=== PATIENT | male | born 1980 | race Caucasian/White ===

== ENCOUNTER 2023-01-25 13:07 | Outpatient (CLI) | payer BC, SELFPAY ==
[2023-01-25 13:24] LABS: Appearance Urine Clear (Clear); Bilirubin Urine Negative (Negative); Blood Urine Negative (Negative); Color Urine Yellow (Yellow); Glucose Urine UA Negative (Negative); Ketones Urine Negative (Negative); Leukocyte Esterase Ur Negative LEU/UL (Negative); Nitrate Urine Negative (Negative); Protein Urine Negative (Negative); Urobilinogen Urine 0.2 mg/dL (<2.0); pH Urine 5.5 (5.0-9.0)
[2023-01-25 13:50] LABS: Add Urine Microscopic? NO
== END 2023-01-25 13:08 | disposition home or self-care (01) ==
LOC: ANHLAB 13:09
PROVIDERS: PCP Internal Medicine; Visit Provider Internal Medicine
DX: B37.9 Candidiasis, unspecified (principal)
CPT/HCPCS: 81003

== ENCOUNTER 2024-05-06 08:19 | Outpatient (CLI) | payer BC, SELFPAY ==
--- NOTE | ~2024-05-06 | XR_ITS ---
EXAMINATION: XR arthrogram shoulder LT DATE: 05/06/2024 09:32 INDICATION: Left shoulder pain TECHNIQUE: A time-out was performed to verify the patient's name, date of , and procedure to b e performed. The procedure including the risks, benefits, and alternatives was discussed with the pat iecarlin. Risks discussed included bleeding and infection. The patient understood the risks and agreed to proceed. The skin overlying the rotator cuff interval of the left glenohumeral joint was prepped an d draped in usual sterile fashion. Anesthetic was administered with 1% lidocaine subcutaneously. A 22 G needle was advanced under fluoroscopic guidance into the joint. Injection of 1 mL of Omnipaque 240 confirmed intra-articular position of the needle. Subsequently, injectate consisting of 12 mL of 2:1:1 mixture of sterile saline:Omnipaque 240:1% lidocaine mixed 200:1 with 529 mg/mL Multihance jac olinium contrast was instilled. Washout of contrast was seen confirming intra-articular administrati on. The needle was removed and the entry site was cleaned and dressed. There were no immediate compl ications. Fluoroscopy exposure time was 0.2 minutes. The total number of images was 168. Total DAP wa s 0.657 mGycm^2 FINDINGS: Real-time fluoroscopy demonstrates the needle an injected contrast in the right glenohumera l joint. IMPRESSION: 1. Successful left glenohumeral joint injection of dilute gadolinium contrast mixture for subsequent MRI arthrogram which will be dictated separately. Reviewed, dictated and finalized at location A. IMPRESSION: 1. Successful left glenohumeral joint injection of dilute gadolinium contrast m ixture for subsequent MRI arthrogram which will be dictated separately.
--- NOTE | ~2024-05-06 | MR_ITS ---
EXAMINATION: MR shoulder LT w con DATE: 05/06/2024 09:59 INDICATION: Left shoulder pain TECHNIQUE: Magnetic resonance imaging (MRI) of the left shoulder was performed following intra-artic ular gadolinium contrast injection and without intravenous contrast. Details of the glenohumeral join t injection have been dictated separately. Sequences included axial T2-weighted FS FSE, axial T1-sina ghted FS FSE, coronal oblique T1-weighted FS FSE, coronal oblique T2-weighted FSE, sagittal T2-weight ed FS FSE, sagittal T1-weighted FSE, and ABER (abduction external rotation) T1-weighted FS FSE. COMPARISON: None. FINDINGS: Coracoacromial arch: The acromion undersurface is curved in morphology (type II). The coracoacromial ligament is normal. M ild acromioclavicular osteoarthritis. Rotator cuff: Mild to moderate supraspinatus and mild infraspinatus tendinopathy without tear. The teres minor tend on is normal. The subscapularis is normal. Normal rotator cuff muscle bulk and signal. Biceps tendon, glenoid labrum and glenohumeral cartilage: Long head of the biceps tendon is normal. There are suture anchors at the anterior and anteroinferior aspect of the glenoid labrum likely for prior labral repair. No evident labral tissue along the 3:00 anterior to 7:00 posterior inferior position of the glenoid consistent with recurrent tear displacem ent versus secondary degeneration of the repaired labrum. There is deep chondral ulceration along the anterior and anteroinferior glenoid. Less severe partial thickness cartilage loss with smooth chondr al surface along the cephalad glenoid. There is partial thickness cartilage loss with some chondral s urface irregularity at the apex of the humeral head along the margins of a posterolateral Hill-Sachs fracture defect. Bones and other: Bone alignment is normal. There is a chronic Hill-Sachs fracture trough at the posterior superolatera l aspect of the humeral head. No acute fracture or pathologic marrow replacing process. That signal i ntensity within largely involuted chronic cystic change extending from medial to lateral across the c ephalad aspect of the intertubercular groove. Fluid signal within an additional cystic change along t he superior facet of the greater tuberosity. Partial tearing of the glenoid side of the anteroinferio r glenohumeral ligament without surrounding edema likely sequela of trauma with Bankhart lesion occur ring in conjunction with the labral tear. Small amount of noncontrast enhanced fluid in the subacromi al/subdeltoid bursa consistent with mild bursitis. IMPRESSION: 1. Recurrent tear versus degeneration of the previously repaired anterior to inferior glenoid labrum with chronic Hill-Sachs fracture trough at the posterior superolateral aspect of the humeral head sug gesting represent sequela of chronic and potentially recurrent glenohumeral dislocation. 2. Mild glenohumeral osteoarthritis with deep chondral ulceration at the anterior to inferior glenoid . 3. Partial tear at the glenoid side of the anteroinferior glenohumeral ligament likely chronic and oc curring in the setting of a Bankart lesion in conjunction with the labral tear. 4. Mild infraspinatus and mild to moderate supraspinatus tendinopathy without tear. 5. Mild subacromial/subdeltoid bursitis. Reviewed, dictated and finalized at location A. IMPRESSION: 1. Recurrent tear versus degeneration of the previously repaired anterior to in ferior glenoid labrum with chronic Hill-Sachs fracture trough at the posterior superolateral aspect of the humeral head suggesting represent sequela of chroni c and potentially recurrent glenohumeral dislocation. 2. Mild glenohumeral osteoarthritis with deep chondral ulceration at the anteri or to inferior glenoid. 3. Partial tear at the glenoid si
== END 2024-05-06 08:20 | disposition home or self-care (01) ==
LOC: ANHIMG 08:30
PROVIDERS: PCP Internal Medicine; Visit Provider Internal Medicine
DX: M25.512 Pain in left shoulder (principal); M19.012 Primary osteoarthritis, left shoulder; M75.112 Incomplete rotator cuff tear or rupture of left shoulder, not specified as traumatic; M67.814 Other specified disorders of tendon, left shoulder; M75.52 Bursitis of left shoulder
CPT/HCPCS: 23350; 73040; 73222; A9577; Q9966

== ENCOUNTER 2024-08-23 13:50 | Outpatient (CLI) | payer BC, SELFPAY ==
--- NOTE | ~2024-08-23 | MR_ITS ---
EXAMINATION: MR cervical spine wo con DATE: 08/23/2024 14:18 INDICATION: Neck pain. Weakness. TECHNIQUE: Magnetic resonance imaging (MRI) of the cervical spine was performed without intravenous c ontrast. COMPARISON: None FINDINGS: There is 6 degrees dextrocurvature of cervicothoracic spine. Vertebral body heights are nor mal. There is mildly decreased disc height at C4-C5, C5-C6, and C6-C7. The spinal cord signal intensi ty is normal. The following disc levels are specifically discussed: C2-C3: The disc does not extend beyond the endplate margin. There is no uncovertebral joint osteoarth ritis. There is mild bilateral facet joint osteoarthritis. There is no neural foraminal stenosis. The re is no central canal stenosis. C3-C4: There is a central protrusion. There is no uncovertebral joint osteoarthritis. There is no fac et joint osteoarthritis. There is no neural foraminal stenosis. There is mild central canal stenosis. C4-C5: The disc does not extend beyond the endplate margin. There is no uncovertebral joint osteoarth ritis. There is no facet joint osteoarthritis. There is no neural foraminal stenosis. There is no josé miguel tral canal stenosis. C5-C6: The disc is bulging. There is mild bilateral uncovertebral joint osteoarthritis. There is no f acet joint osteoarthritis. There is no neural foraminal stenosis. There is mild central canal stenosi s. C6-C7: The disc is bulging. There is no uncovertebral joint osteoarthritis. There is mild left facet joint osteoarthritis. There is no neural foraminal stenosis. There is mild central canal stenosis. C7-T1: The disc does not extend beyond the endplate margin. There is no uncovertebral joint osteoarth ritis. There is mild bilateral facet joint osteoarthritis. There is no neural foraminal stenosis. The re is no central canal stenosis. IMPRESSION: 1. Mild cervical spondylosis. Reviewed, dictated and finalized at location A. INJECTION SERVICER
--- NOTE | ~2024-08-23 | MR_ITS ---
EXAMINATION: MR lumbar spine wo con DATE: 08/23/2024 14:34 INDICATION: Low back pain. TECHNIQUE: Magnetic resonance imaging (MRI) of the lumbar spine was performed without intravenous con trast. Sequences included sagittal T2-weighted FSE, sagittal T2-weighted FS FSE, sagittal T1-weighted FSE, and axial T2-weighted FSE. COMPARISON: None FINDINGS: Alignment is normal. Vertebral body heights are normal. Intervertebral disc heights are nor mal. The distal spinal cord signal intensity is normal. The conus medullaris is at T12. The following disc levels are specifically discussed: L1-L2: There is a right foraminal extrusion. There is no facet joint osteoarthritis. There is mild ri ght neural foraminal stenosis. There is no central canal stenosis. L2-L3: The disc is mildly bulging. There is mild bilateral facet joint osteoarthritis. There is mild bilateral neural foraminal stenosis. There is no central canal stenosis. L3-L4: The disc is bulging and has an annular fissure. There is mild bilateral facet joint osteoarthr itis. There is mild bilateral neural foraminal stenosis. There is mild central canal stenosis. L4-L5: The disc is bulging and has an annular fissure. There is mild bilateral facet joint osteoarthr itis. There is mild bilateral neural foraminal stenosis. There is mild central canal stenosis. L5-S1: The disc is bulging and has an annular fissure. There is mild bilateral facet joint osteoarthr itis. There is mild left neural foraminal stenosis. There is mild central canal stenosis. IMPRESSION: 1. Mild lumbar spondylosis. Reviewed, dictated and finalized at location A. ITATIVE FIELD PROJECT MANAGER IMPRESSION: 1. Mild lumbar spondylosis.
== END 2024-08-23 13:51 | disposition home or self-care (01) ==
LOC: GOSHIMG 13:51
PROVIDERS: PCP Internal Medicine; Visit Provider Internal Medicine
DX: M43.06 Spondylolysis, lumbar region (principal); M43.02 Spondylolysis, cervical region
CPT/HCPCS: 72141; 72148

== ENCOUNTER 2024-09-11 13:53 | Outpatient (CLI) | payer BC, SELFPAY ==
--- NOTE | ~2024-09-11 | MR_ITS ---
EXAMINATION: MR brain/brain stem wo/w con DATE: 09/11/2024 14:50 INDICATION: Weakness. TECHNIQUE: Magnetic resonance imaging (MRI) of the brain and brainstem was performed without and with 18 mL MultiHance intravenous contrast. COMPARISON: None. FINDINGS: There is no intracranial hemorrhage, acute infarction, or abnormal intracranial mass lesion . The ventricles are normal in size. The paranasal sinuses are clear. The orbits are normal. The mast oid air cells are normal. IMPRESSION: 1. Normal brain. Reviewed, dictated and finalized at location A. [place] COOPER IMPRESSION: 1. Normal brain.
== END 2024-09-11 13:54 | disposition home or self-care (01) ==
LOC: MICIMG 13:53
PROVIDERS: PCP Internal Medicine; Visit Provider Internal Medicine
DX: R53.1 Weakness (principal)
CPT/HCPCS: 70553; A9577

== ENCOUNTER 2025-07-09 10:10 | Outpatient (CLI) | payer BC, SELFPAY ==
--- NOTE | ~2025-07-09 | MMUS_ITS ---
EXAMINATION: MM diagnostic maren RT w lakeisha, US breast RT limited INDICATION: 44-year old MALE; presents for imaging evaluation of small palpable nodule in the right breast. COMPARISON: Baseline TECHNIQUE: Digital breast tomosynthesis CC and MLO views of the RIGHT breast and MLO view of the left breast were obtained with computer-aided detection to assist in interpretation of the study. FINDINGS: The breasts are almost entirely fatty.There is minimal volume of fibroglandular tissue in RIGHT breast in the area of palpable lump compatible with gynecomastia. There are no suspicious masses, calcifications, architectural distortion or any other abnormality in BILATERAL breast. RIGHT BREAST ULTRASOUND FINDINGS: Targeted evaluation of the palpable lump in the right breast was completed. At 7:00, 2 cm from the nipple corresponding to the palpable lump there is an hypoechoic lesion within the subcutaneous fat that measure 1.2 x 0.9 x 0.7 cm. This finding is compatible with a fatty tumor such as lipoma. IMPRESSION: FINDINGS COMPATIBLE WITH LIPOMA CORRELATES TO THE AREA OF PALPABLE LUMP IN THE RIGHT BREAST . FURTHER EVALUATION OF PATIENT'S PALPABLE LUMP SHOULD BE BASED ON CLINICAL IMPRESSION. FOLLOW-UP CLINICALLY WARRANTED. RECOMMENDATION: Clinical management of patient's palpable lump. BI-RADS 2, BENIGN Reviewed, dictated and finalized at location B. IMPRESSION: FINDINGS COMPATIBLE WITH LIPOMA CORRELATES TO THE AREA OF PALPABLE LUMP IN THE RIGHT BREAST . FURTHER EVALUATION OF PATIENT'S PALPABLE LUMP SHOULD BE BASED ON CLINICAL IMPRESSION. FOLLOW-UP CLINICALLY WARRANTED. RECOMMENDATION: Clinical management of patient's palpable lump. BI-RADS 2, BENIGN
--- OUTSIDE RECORDS SUMMARY | 2025-07-09 11:06 | XMS_ITS | Clinical Summary ---
Author Organization [facility] Address [address] [place] [address] Care Team Providers Care Pouncing Machine Operator Name Role Phone Unavailable Primary Care Provider Unavailabl e Source Comments [facility],non-owned Affiliates and Associated Physician Practices is amultiple site organization consisting of ambulatory clinics and hospital sitesin [place], [place], [place] and [place]. This disclosure is being madepursuant to the Care Everywhere program and may not contain all information available regarding this patient. Last updated 18.[facility] [employer] Social History Tobacco Use Types Packs/Day Years Used Date Smoking Tobacco: Never Assessed Sex and Gender Information Value Date Recorded Sex Assigned at Not on file Legal Sex Male 2:12 PM CDT Gender Identity Not on file Sexual Orientation Not on file Plan of Treatment Health Maintenance Due Date Last Done Comments LIPID TESTING 1981 HIV SCREENING 1996 HEPATITIS C SCREENING 09/17/1999 DTAP/TDAP/TD VACCINES (1 - Tdap) 2000 HEPATITIS B VACCINE (1 of 3 - 19+ 3-dose series) 2000 HPV VACCINE (1 - 3-dose SCDM series) 2008 DEPRESSION SCREENING 10/16/2024 COVID-19 VACCINE (1 - 2023-2 5 season) 2025 INFLUENZA VACCINE (#1) 2025 ZOSTER VACCINE (1 of 2) 2031 HIB VACCINE Aged Out No longer eligi ble based on patient's age to complete this topic MENINGOCOCCAL (Group B) VACC INE SHARED DECISION-MAKING Aged Out No longer eligibl e based on patient's age to complete this topic MENINGOCOCCAL GROUPS A/C/Y/W VACCINE Aged Out No longer eligible b ased on patient's age to complete this topic PNEUMOCOCCAL VACCINE Aged Out No long er eligible based on patient's age to complete this topic Insurance ANTHEM ANTHEM
--- OUTSIDE RECORDS SUMMARY | 2025-07-09 11:06 | XMS_ITS | Clinical Summary ---
Author Organization [facility] Address [facility] [place] [address] Care Team Providers Care Admitting Office Escort Name Role Phone Bryson Spears MD Primary Care Provider [phone] Allergies No known active allergies Medications ALPRAZolam (NIRAVAM) 0.5 mg disintegrating tablet Take 1 tablet (0.5 mg total) by mouth nightly as needed for anxiety Active buPROPion (WELLBUTRIN) 100 mg tablet Take 1 tablet (100 mg total) by mouth 2 (two) times a day Active rosuvastatin (CRESTOR) 40 mg tablet Take 1 tablet (40 mg total) by mouth daily Active Active Problems No known active problems Social History Tobacco Use Types Packs/Day Years Used Date Smoking Tobacco: Former Cigarettes Tobacco Cessation:Counseling Given: Not Answered Personal Safety Answer Date Recorded Getting School Help Needed Not on file 05/08 Sex and Gender Information Value Date Recorded Sex Assigned at Not on file 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 Gender Identity Not on file Sexual Orientation Not on file Obstetrics History Last Filed Vital Signs Vital Sign Reading Time Taken Comments Blood Pressure - - Pulse - - Temperature - - Respiratory Rate - - Oxygen Saturation - - Inhaled Oxygen Concentration - - Weight 97.5 kg (215 lb) 06/26/2024 11:42 AM CDT Height 182.9 cm (6') 06/26/2024 11:42 AM CDT Body Mass Index 29.16 06/26/2024 11:42 AM CDT Plan of Treatment Health Maintenance Due Date Last Done Comments Depression Screening 1981 Hepatitis C Screening 1981 DTaP/Tdap/Td Vaccine (1 - Tdap) 1992 Varicella Vaccines (1 of 2 - 13+ 2-dose series) 1994 Hepatitis B Screening 1999 Regular Well Visit/Exam 18-64 1999 HPV Vaccines (1 - 3-dose SCD M series) 2008 Covid-19 Vaccine (4 - 2024-2 6 season) 2025 08/06/2021, 01/19/2021, 12/18/2020 Influenza Vaccine (#1) 2025 Pneumococcal vaccine <65 Aged Out No longer eligible based on patient's age to complete this topic Insurance [employer] [place] [employer] [place] Care Teams Admitting Office Escort Relationship Specialty Start Date End Date Bryson Spears MD [address] [facility] [address] [facility] [address] [place] [address] PCP - General Internal Medicine 05/09/24
--- OUTSIDE RECORDS SUMMARY | 2025-07-09 11:06 | XMS_ITS | Encounter Summary ---
Author Organization [facility] Address [address] [place] [address] Care Team Providers Care Manager Employee Benefits Name Role Phone Unavailable Primary Care Provider Unavailabl e Encounter Details Date Type Department Care Team (Late st Contact Info) Description 10/17/2024 Lab Requisition [facility] - DermPath Lab [address] [place] [facility] [place] [place] [address] Brianna Romero MD [address] [facility] [address] [place] [address] Social History Tobacco Use Types Packs/Day Years Used Date Smoking Tobacco: Never Assessed Sex and Gender Information Value Date Recorded Sex Assigned at Not on file Legal Sex Male 2:12 PM CDT Gender Identity Not on file Sexual Orientation Not on file documented as of this encounter Plan of Treatment Not on file documented as of this encounter Procedures Procedure Name Priority Date/Time Associated Diagnosis Comments DERMATOPATHOLOGY Routine 10/17/2024 3:04 PM CAGE MAKER MACHINE documented in this encounter Results * DERMATOPATHOLOGY (10/17/2024 3:04 PM CAGE MAKER MACHINE) Case Report Dermatopathology Report Case: [id number] Authorizing Provider: Brianna Romero MD Collected: 10/17/2024 03:04 PM Ordering Location: [facility] - Received: 10/18/2024 12:36 PM DermPath Lab Pathologist: Faviola Arguelles MD Specimen: Skin, left shoulder 2:04 PM CAGE MAKER MACHINE DERMATOPATHOLOGY LABORATORY Final Diagnosis Specimen A. SKIN, left shoulder: TINEA VERSICOLOR (B36.0) (see microscopic description) 2:04 PM CAGE MAKER MACHINE DERMATOPATHOLOGY LABORATORY at 1404 CAGE MAKER MACHINE Clinical History PSO vs. Tinea vs. AD; Thin scaly plaques/patches to neck/chest/back 2:04 PM [facility] DERMATOPATHOLOGY LABORATORY Gross Description Specimen A: Received is one formalin filled container labeled with the patient's name and designated left shoulder. The specimen consists of a punch biopsy measuring 3x3x4 mm. Jar 0. 2:04 PM [facility] DERMATOPATHOLOGY LABORATORY Microscopic Description Specimen A. SKIN, left shoulder: In the stratum corneum, there are numerous basophilic hyphae and spores that resemble spaghetti and meatballs. Additional deeper sections were obtained and reviewed. 2:04 PM [facility] DERMATOPATHOLOGY LABORATORY Disclaimer An external and internal positive and negative controls are appropriate for the histochemical, immunohistochemical and immunofluorescence stain(s) in this case (if any), except where stated explicitly. The performance characteristics of the stain(s) cited in this report were developed and its performance characteristic determined by the Dermatopathology Laboratory at [facility], directed by Dr. Curtis Rawls. These tests need not be, and therefore are not, approved by the [place] Food and Drug Administration. The tests are used for clinical purposes. Billing Codes Specimen Charges Stain Charges 06304 1 2:04 PM [facility] DERMATOPATHOLOGY LABORATORY Embedded Images 2:04 PM [facility] DERMATOPATHOLOGY LABORATORY Pathology/Cytolo gy TISSUE SPECIMEN FROM SKIN / Unknown 10/17/2024 3:04 PM CAGE MAKER MACHINE 10/18/2024 12:36 PM CAGE MAKER MACHINE Brianna Romero MD LAB - PATHOLOGY/CYTOLOGY OR DERABLES Final Result DERMATOPATHOLOGY LABORATORY [facility] - Department of Dermatology [address] [place] [address], [facility] [phone] documented in this encounter Visit Diagnoses Not on filedocumented in this encounter
--- OUTSIDE RECORDS SUMMARY | 2025-07-09 11:06 | XMS_ITS | Encounter Summary ---
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 [facility] [place] [id number] Fartun Whitney MD [address] [place] [address] Social History Tobacco Use Types Packs/Day Years [...] Priority Date/Time Associated Diagnosis Comments DERMATOPATHOLOGY Routine 02/25/2019 12:0 0 AM CDT documented in this encounter Results * DERMATOPATHOLOGY (02/25/2019 12:00 AM CDT) Case Report Dermatopathology Report Case: [id number] Authorizing Provider: Fartun Whitney MD Collected: 02/25/2019 12:00 AM Pathologist: Sheri Zaman MD Received: 02/26/2019 06:27 AM Specimen: Skin, right parietal scalp 9 3:42 PM CDT DERMATOPATHOLOGY LABORATORY Final Diagnosis Specimen A. 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 3:42 PM CDT DERMATOPATHOLOGY LABORATORY Gross Description Specimen A: Received is one formalin filled container labeled with the patient's name and designated right parietal scalp. The specimen consists of a shave measuring [id number]. Jar 0. 3:42 PM CDT DERMATOPATHOLOGY LABORATORY Microscopic Description Specimen A. SKIN, right parietal scalp: There are nests of melanocytes at the dermal-epidermal junction and within the dermis. 3:42 PM CDT DERMATOPATHOLOGY LABORATORY Disclaimer An external and internal positive and negative controls are appropriate for the histochemical, immunohistochemical and immunofluorescence stain(s) in this case (if any), except where stated explicitly. The performance characteristics of the stain(s) cited in this report were developed and its performance characteristic determined by the Dermatopathology Laboratory at [facility], directed by Dr. Curtis Rawls. These tests need not be, and therefore are not, approved by the [place] Food and Drug Administration. The tests are used for clinical purposes. Billing Codes Specimen Charges Stain Charges 12682 1 3:42 PM CDT DERMATOPATHOLOGY LABORATORY Embedded Images 3:42 PM CDT DERMATOPATHOLOGY LABORATORY Pathology/Cytolog y TISSUE SPECIMEN FROM SKIN / Unknown 02/25/2019 02/26/2019 6:27 AM CDT Fartun Whitney MD LAB - PATHOLOGY/CYTOLOGY ORD ERABLES Final Result DERMATOPATHOLOGY LABORATORY [facility] - Department of Dermatology [address] [place] [address] [address] [place] [address], [facility] [phone] documented in this encounter Visit Diagnoses Not on filedocumented in this encounter
== END 2025-07-09 10:11 | disposition home or self-care (01) ==
LOC: ANHFOHIMG 10:12
PROVIDERS: PCP Internal Medicine; Visit Provider Internal Medicine
DX: N63.10 Unspecified lump in the right breast, unspecified quadrant (principal)
CPT/HCPCS: 76642; 77061; 77065; G0279